=== PATIENT | male | born 1990 | race American Indian/Alaskan Native ===

== ENCOUNTER 2018-04-22 01:10 | Emergency (ER) | payer OTHER ==
[2018-04-22 01:52] VITALS: BP 104/77
[2018-04-22] MEDS ORDERED: MOTRIN PO ONE (05:03)
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
== END 2018-04-22 06:02 | disposition home or self-care (01) ==
LOC: ED 01:10
DX: T24.131A Burn of first degree of right lower leg, initial encounter (principal); J45.909 Unspecified asthma, uncomplicated; F17.200 Nicotine dependence, unspecified, uncomplicated; F12.90 Cannabis use, unspecified, uncomplicated; X18.XXXA Contact with other hot metals, initial encounter; Y93.89 Activity, other specified; Y99.8 Other external cause status; Y92.89 Other specified places as the place of occurrence of the external cause
CPT/HCPCS: 99282